=== PATIENT | female | born 1970 ===

== ENCOUNTER 2017-02-04 15:21 | Emergency (ER) | payer BC ==
[2017-02-04 15:30] VITALS: BP 128/76
--- NOTE | 2017-02-07 00:43 | UC ---
Respiratory Complaint HPI - HPI Summary HPI Summary: 46 y/o female presents to the urgent care c/o chest congestion with productive cough for the past month. Symptoms started with nasal congestion, sore throat b /l ear pain. She was Dx by her PCP with sinusitis. However symptoms have worse and she is producing a green sputum. Pt also states subjective fever at home. Pt denies SOB, chest pain, abdominal pain, N/V/D - History of Current Complaint Chief Complaint: UCRespiratory Stated Complaint: URI Time Seen by Provider: 02/04/17 16:16 Hx Obtained From: Patient Hx Last Menstrual Period: 07/12/13 ?: No - menopausal Onset/Duration: Gradual Onset, Lasting Weeks - 4 weeks, Still Present Timing: Intermittent Episodes Severity Initially: Mild Severity Currently: Moderate Pain Intensity: 2 Pain Scale Used: 0-10 Numeric Character: Cough: Productive, Sputum Description: - green Aggravating Factors: Recumbent Position Alleviating Factors: OTC Meds Associated Signs And Symptoms: Positive: Fever, Chills, URI, Nasal Congestion - Risk Factors Pulmonary Embolism Risk Factors: Negative Cardiac Risk Factors: Negative Pseudomonas Risk Factors: Negative Tuberculosis Risk Factors: Negative - Allergies/Home Medications Allergies/Adverse Reactions: Allergies Allergy/AdvReac Type Severity Reaction Status Date / Time Adhesive Tape Allergy Rash Verified 02/04/17 15:30 Seasonal/Environmental Allergy Intermediate Congestion Uncoded 07/13/12 14:06 Allergies Home Medications: Home Medications DULoxetine DR CAP* [Cymbalta CAP*] 20 mg PO BID 02/04/17 [History Confirmed ] Oxycodone HCl [Oxaydo] 7.5 mg PO 02/04/17 [History] Pantoprazole TAB (NF) [Protonix TAB (NF)] 40 mg PO DAILY 02/04/17 [History Confirmed 02/04/17] PMH/Surg Hx/FS Hx/Imm Hx Previously Healthy: Yes Neurological History: Seizures Other Neurological History: Brain tumor Cancer History: Colorectal Cancer - Surgical History Surgical History: Yes Surgery Procedure, Year, and Place: Brain tumor removed 03/15/1999 - Family History Known Family History: Positive: Hypertension, Diabetes - Social History Occupation: Employed Full-time Lives: With Family Alcohol Use: Rare Substance Use Type: None Smoking Status (MU): Never Smoked Tobacco Review of Systems Constitutional: Fever - subjective at home Eyes: Negative ENT: Ear Ache - B/L ear pain, Nasal Discharge - at the begining of symptoms Respiratory: Cough - productive with green sputum Cardiovascular: Negative Gastrointestinal: Negative Genitourinary: Negative Motor: Negative Neurovascular: Negative Musculoskeletal: Negative Neurological: Negative Psychological: Negative Is Patient Immunocompromised?: No All Other Systems Reviewed And Are Negative: Yes Physical Exam Triage Information Reviewed: Yes Vital Signs: Initial Vital Signs Temp 97.5 F 02/04/17 15:26 Pulse 90 02/04/17 15:26 Resp 18 02/04/17 15:26 BP 128/76 02/04/17 15:26 Pulse Ox 100 02/04/17 15:26 - Additional Comments Vital Signs Reviewed: Yes General: well developed, well nourished female sitting in the examining table w/ o any apparent distress Eyes: Positive: Conjunctiva Clear - PERRLA, EOMI, fundi grossly normal ENT: Positive: Normal ENT inspection, Hearing grossly normal, Pharynx normal, Nasal congestion - edematous and erythematous nasal mucosa, Nasal drainage - yellowish drainage, TMs normal. Negative: Tonsillar swelling, Tonsillar exudate Neck: Positive: Supple, Nontender, No Lymphadenopathy Respiratory: no orthopnea or dyspnea. Able to speak in full sentences, no retractions or accessory muscle use, no tripod position, stridor, or head bobbing. B/L posterior upper lungs with scattered rhonchi, no wheezing or rales. Cardiovascular: Positive: RRR, No Murmur, Pulses Normal, Brisk Capillary Refill Abdomen Description: Positive: Nontender, No Organomegaly, Soft. Negative: CVA Tenderness (R), CVA Tenderness (L) Bowel Sounds: Positive: Present Musculoskeletal Exam: Normal Musculoskeletal: Positive: Strength Intact, ROM Intact, No Edema Neurological Exam: Normal Psychological Exam: Normal Skin Exam: Normal UC Diagnostic Evaluation - Laboratory O2 Sat by Pulse Oximetry: 100 Respiratory Course/Dx - Course Course Of Treatment: 46 y/o female presents to the urgent care c/o chest congestion with productive cough for the past month. Symptoms started with nasal congestion, sore throat b/l ear pain. She was Dx by her PCP with sinusitis. However symptoms have worse and she is producing a green sputum. Pt also states subjective fever at home. Pt denies SOB, chest pain, abdominal pain , N/V/D Hx obtained. Pt with B/L posterior upper lungs with scattered rhonchi on examination. Pt symptomatic for the past month. Pt Rx Z-kiet for acute bronchitis and Tessalon tabs PO to alleviate cough. Pt advised to increase fluid intake and eat well. if not improvement or worsening of symptoms to return to the urgent care or f/u with PCP for further management. pt understood and agreed with plan of care - Differential Dx/Diagnosis Differential Diagnosis/HQI/PQRI: Asthma, Bronchitis, Influenza, Laryngitis, Lower Resp Infection, Sinusitis Provider Diagnoses: 1- cute bronchitis Discharge - Discharge Plan Condition: Stable Disposition: HOME Prescriptions: Azithromyxin KIET (NF) [Z-Kiet (Zithromax) 250 mg tabs #6] 2 tab PO .TODAY, THEN 1 DAILY #6 tab Benzonatate CAP* [Tessalon 100 MG CAP*] 100 mg PO TID PRN #[id number] cap PRN Reason: Cough Patient Education Materials: Acute Bronchitis (ED) Referrals: Mark Greenberg, LICENSED LOAN OFFICER ASSISTANT [Primary Care Provider] - 1 Week Additional Instructions: 1-Please take full course of antibiotic to avoid resistance. 2-Take Tessalon PO tabs as directed to alleviate cough. Increase fluid intake, rest and eat well. 3- If symptoms do not improve or worsen or your develop SOB with fever and severe wheezing please go immediately to the ER further evaluation and treatment. 4- F/u with your PCP in 1 week if not improvement of symptoms
== END 2017-02-04 16:40 | disposition home or self-care (01) ==
LOC: UCEAST 15:21
DX: J20.9 Acute bronchitis, unspecified (principal); H92.03 Otalgia, bilateral; R56.9 Unspecified convulsions; Z86.011 Personal history of benign neoplasm of the brain; Z85.038 Personal history of other malignant neoplasm of large intestine
CPT/HCPCS: 99212; G0463

== ENCOUNTER 2018-08-27 07:51 | Emergency (ER) | payer BC, OTHER ==
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
[2018-08-27] MEDS ORDERED: Acetaminophen TAB* 325 MG PO ONE (08:48)
[2018-08-27 09:17] LABS: ABS Eosinophils 0.1 10^3/ul (0-0.6); ABS Lymphocytes 0.9 10^3/ul (1.0-4.8); ABS Monocytes 0.4 10^3/ul (0-0.8); ABS Neutrophils 2.8 10^3/ul (1.5-7.7); Eosinophil % 1.7 %; Hematocrit 33 % (35-47); Hemoglobin 11.1 g/dL (12.0-16.0); Lymphocyte % 22.4 %; Mean Corpuscular HGB Conc 34 g/dL (31-36); Mean Corpuscular Hemoglobin 31 pg (27-31); Mean Corpuscular Volume 92 fL (80-97); Mean Platelet Volume 7.2 fL (7.4-10.4); Platelet Count 150 10^3/uL (150-450); Red Blood Count 3.59 10^6 /uL (3.70-4.87); Red Cell Distribution Width 15 % (10-15); White Blood Count 4.2 10^3/uL (3.5-10.8)
[2018-08-27 09:37] LABS: Albumin 3.9 g/dL (3.2-5.2); Albumin/Globulin Ratio 1.6 (1-3); BUN/Creatinine Ratio 12.6 (8-20); Calcium 9.3 mg/dL (8.6-10.3); EGFR African American 69.2 (>60); EGFR Non-African American 57.2 (>60); Globulin 2.5 g/dL (2-4); Total Bilirubin 0.4 mg/dL (0.2-1.0); Total Protein 6.4 g/dL (6.4-8.9)
[2018-08-27] MEDS ORDERED: Iodixanol* (CONTRAST) 320 MG/ML 100 ML SDV IV ONE (10:04)
[2018-08-27 10:17] LABS: Urine Appearance Clear; Urine Bacteria Absent (Absent); Urine Bilirubin Negative (Negative); Urine Blood 1+ (Negative); Urine Color Yellow; Urine Glucose Negative (Negative); Urine Ketones Negative (Negative); Urine Nitrite Negative (Negative); Urine Protein Negative (Negative); Urine Red Blood Cell 1+(3-5/hpf) (Absent); Urine Specific Gravity 1.009 (1.010-1.030); Urine Squamous Epithelial Cell Present (Absent); Urine Urobilinogen Negative (Negative); Urine White Blood Cell Trace(0-5/hpf) (Absent)
[2018-08-27 12:51] VITALS: BP 140/90
== END 2018-08-27 12:51 | disposition home or self-care (01) ==
LOC: ED 07:51
DX: S39.91XA Unspecified injury of abdomen, initial encounter (principal); R10.13 Epigastric pain; M89.9 Disorder of bone, unspecified; V49.88XA Car occupant (driver) (passenger) injured in other specified transport accidents, initial encounter; Y92.9 Unspecified place or not applicable; Z92.21 Personal history of antineoplastic chemotherapy; Z79.899 Other long term (current) drug therapy; Z85.038 Personal history of other malignant neoplasm of large intestine; Z86.69 Personal history of other diseases of the nervous system and sense organs
CPT/HCPCS: 36415; 71250; 74176; 80053; 81003; 81015; 83605; 83690; 85025; 86850; 86900; 86901; 87086; 93005; 99284; A9270-GY; J1642